=== PATIENT | male | born 1980 | race African-American/Black ===

== ENCOUNTER 2018-07-15 09:54 | Emergency (ER) | payer SELFPAY ==
[~2018-07-15] VITALS: Ht 182.9 cm; Wt 91.2 kg
[2018-07-15 09:58] VITALS: BP 153/103
--- NOTE | 2018-07-15 09:59 | NUR ---
DR. TURPIN AT BEDSIDE FOR EVAL.
[2018-07-15] MEDS ORDERED: IBUPROFEN 600 MG TABLET PO ONE ×2 (10:00→10:02)
--- NOTE | 2018-07-15 10:04 | NUR ---
PT IS WHEELED TO CT SCAN VIA [facility].
--- NOTE | 2018-07-15 10:54 | NUR ---
Patient discharged to home in stable condition. Written and verbal after care instructions given. Patient verbalizes understanding of instruction.
== END 2018-07-15 10:55 | disposition home or self-care (01) ==
LOC: ER 10:13
DX: S46.811A Strain of other muscles, fascia and tendons at shoulder and upper arm level, right arm, initial encounter (principal); S66.812A Strain of other specified muscles, fascia and tendons at wrist and hand level, left hand, initial encounter; V49.69XA Unspecified car occupant injured in collision with other motor vehicles in traffic accident, initial encounter; Y93.89 Activity, other specified; Y92.413 State road as the place of occurrence of the external cause; Y99.8 Other external cause status
CPT/HCPCS: 70450-TC; 73030-TC; 73130-TC